=== PATIENT | male | born 1985 | race Caucasian/White ===

== ENCOUNTER → 2016-08-12 | Day surgery (SDC) | payer OTHER, SELFPAY ==
[~2016-08-12] VITALS: Ht 185.4 cm; Wt 94.3 kg
[~2016-08-12] MED LIST: AMIT10TA PO; ATIV1TAB7 PO; LEXA1TAB PO; LIDOCAINE 1% SDV INJ 30 ML VIAL As Ordered ONE; LR 1,000 ML IV SCH; MINO100T PO; ceFAZolin SOD 1 GM in D5W MINI-BAG PLUS 50 ML IV ONE
[2016-08-12 15:55] VITALS: BP 130/68
--- NOTE | 2016-08-13 05:22 | RO ---
DATE OF PROCEDURE: 08/12/2016 PREOPERATIVE DIAGNOSIS: Implantable loop recorder in situ. POSTOPERATIVE DIAGNOSIS: Successful removal of Implantable loop recorder. PROCEDURE PERFORMED: Explantation implantable loop recorder. SURGEON: Richard Kinsey MD NEURO OPHTHALMOLOGIST: None. ANESTHESIA: 1% Lidocaine local. FINDINGS: Implantable loop recorder in situ. SPECIMENS: Old [employer]onic LINQ implantable loop recorder. ESTIMATED BLOOD LOSS: Less than 5 mL. No blood products replaced. No drains. No complications. PROCEDURE DESCRIPTION: Patient was prepped and draped over the left anterior chest. Lidocaine 1% was used for local anesthetic. A #15 scalpel blade was used to cut through the existing incision over the ILR and used to dissect down to the anterior capsule overlying the implantable loop recorder. The implantable loop recorder was successfully removed. The skin was approximated together with #4-0 Biosyn and the free ends were snipped at the level of the skin after Dermabond was applied. Two layers of Dermabond was applied. After the Dermabond was fairly dry, as an extra precaution because the patient is quite active with working out, I applied some Mastisol above and below the incision and then placed three Steri-Strips.
== END | disposition home or self-care (01) ==
LOC: M SDC 12:56
PROVIDERS: ATTEND Internal Medicine Cardiovascular Disease
DX: R55 Syncope and collapse (principal); I49.8 Other specified cardiac arrhythmias; F41.9 Anxiety disorder, unspecified; Z79.899 Other long term (current) drug therapy
CPT/HCPCS: 33284; J0690

== ENCOUNTER → 2017-10-05 | Outpatient (REF) | payer BC ==
[2017-10-05 18:58] LABS: APPEARANCE, URINE CLEAR (CLEAR); BACTERIA, URINE AUTO NEGATIVE (NEGATIVE); BILIRUBIN, URINE AUTO NEGATIVE (NEGATIVE); BLOOD, URINE BLOOD NEGATIVE (NEGATIVE); COLOR, URINE STRAW (YELLOW); GLUCOSE, URINE (UA) AUTO NEGATIVE (NEGATIVE); KETONE, URINE AUTO NEGATIVE (NEGATIVE); LEUKOCYTE ESTERASE, URINE AUTO NEGATIVE (NEGATIVE); NITRITE, URINE AUTO NEGATIVE (NEGATIVE); PROTEIN, URINE AUTO NEGATIVE (NEGATIVE); RBC, URINE AUTO 0 /HPF (0-3); SPECIFIC GRAVITY URINE AUTO 1.003 (1.002-1.035); SQUAMOUS EPITHELIAL CELL UR AU 0 /HPF (0-6); UROBILINOGEN, URINE AUTO 0.2 mg/dL (0.0-2.0); WBC, URINE AUTO 0 /HPF (0-3)
== END ==
LOC: M SMT 17:32
DX: N50.819 Testicular pain, unspecified (principal)
CPT/HCPCS: 81001